=== PATIENT | female | born 1985 | race Caucasian/White ===

== ENCOUNTER 2022-03-21 11:51 | Inpatient (IN) ==
[2022-03-21] MEDS ORDERED: LIDOCAINE 1% LOCAL 20 ML VIAL INFIL PRN (12:24)
[2022-03-21] MEDS ORDERED: LACTATED RINGER'S 1,000 ML IV PRN (12:24)
[2022-03-21] MEDS ORDERED: OXYTOCIN 30 UNITS/500 ML BAG IV PRN ×2 (12:24→14:57)
--- NOTE | 2022-03-21 12:28 | History & Physical Report ---
Date of Service March 21, 2022 Assessment & Plan (1) 38 weeks gestation of : (2) heart rate decelerations affecting management of mother: Plan Patient has now had two of these decels today. Given she is term, would recommend proceeding with induction of labor. No specific contraindication to induction at this point. Will get ultrasound to check fluid. fetus is now category one. Will check cervix when is here and make a plan. History of Present Illness Chief Complaint: decel in the office Primary Care Provider: Miley Long DO Patient is a 36yowf with iup at 38 3/7 weeks who presents to labor and delivery from the office. Was seen there and had decreased FM. Was put on the monitor and had a decel to the 70s that was spontaneous and spontaneously resolved. Patient notes no contractions no lof/vb. has been uncomplicated. While on the monitor here, fetus had another spontaneous decel to the 70s that resolved with position change. OB Labs: Blood Type A Positive 09/10/21 Antibody Screen NEGATIVE 09/10/21 A Hemoglobin 11.8 g/dl (12.0-16.0) L 01/06/22 Hematocrit 35.3 % (34.1-44.9) 01/06/22 Mean Corpuscular Volume 91.3 fL (80-100) 09/10/21 Platelet Count 280 K/uL (130-400) 09/10/21 Rubella IgG Antibody Immune (Immune) 09/10/21 Rapid Plasma Reagin Nonreactive (Nonreactive) 09/10/21 Hepatitis B Surface Antigen. NON-REACTIVE (NON-REACTIVE) 09/10/21 Hepatitis C Antibody (EIA) NON-REACTIVE (NON-REACTIVE) 09/10/21 HIV (1&2) Ag and Ab Confirmation NON-REACTIVE (NON-REACTIVE) 09/10/21 Glucose 1 Hour 50 gm Load 124 mg/dl (70-130) 01/06/22 Maternal Serum Alpha Fetoprotein 75.7 ng/mL 10/22/21 OB Optional Labs: Chlamydia trachomatis RNA NOT DETECTED (NOT DETECTED) 08/13/21 Neisseria gonorrhoeae RNA NOT DETECTED (NOT DETECTED) 08/13/21 Alpha Fetoprotein Triple Screen SEE NOTE 10/22/21 Labs Reviewed: cfdna-low risk--mln Declines cf/sma--mln afp neg-akh Independent Interpretation Lab Interpretation: cfdna-low risk--mln Allergies Allergy/AdvReac Type Severity Reaction Status Date / Time No Known Allergies Allergy Verified 03/21/22 11:00 Home Medications Medication Instructions Recorded Confirmed Type prenat.vits,josselin,gqg-phdu-pbtnz 1 tab PO DAILY 08/10/21 03/21/22 History Patient History Medical History Anxiety GERD (gastroesophageal reflux disease) Surgical History Hx of appendectomy [place] teeth removed Family History Father Heart disease Grandmother (Maternal) Arthritis Grandfather (Maternal) Hypertension Prostate cancer Grandfather (Paternal) Myocardial infarction Social History Smoking Status: Former smoker Age Quit Using Tobacco: 29; Hx Alcohol Use: No Hx Substance Use: No Preferred Language: Senegalese marital status: marital status details: Wan [phone] Current Living Situation: Spouse Current Living Situation Comment: lives with spouse, 1 dog, 1 cat, pt changing litter, using gloves. 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 Coding Level of Care Code None Diagnoses 38 weeks gestation of Z3A.38 heart rate decelerations affecting management of mother O36.8390
[2022-03-21 12:46] LABS: Hematocrit (blood only) 32.9 % (34.1-44.9); Hemoglobin 11.4 g/dl (12.0-16.0); Mean Corpuscular Hemoglobin 31.2 pg (25.0-34.0); Mean Corpuscular Hgb Conc 34.7 g/dL (32.0-36.0); Mean Corpuscular Volume 90.1 fL (80.0-100.0); Mean Platelet Volume 9.9 fL (9.4-12.3); Platelet Count 233 K/uL (130-400); RDW Coefficient of Variation 13.3 % (11.5-14.5); RDW Standard Deviation 43.8 fL (36.4-46.3); Red Blood Count 3.65 M/uL (3.93-5.22); White Blood Count 10.71 K/ul (4.8-10.8)
--- NOTE | 2022-03-21 14:21 | Labor Progress Brief Note ---
Date of Service March 21, 2022 Subjective Explained to the patient options for induction. Will go with brown/pit. consent obtained for brown. Assessment & Plan (1) 38 weeks gestation of : (2) heart rate decelerations affecting management of mother: Plan brown placed, will start pitocin, discussed all options at this point with both of them--primary c/s without labor, induction with pit alone (cx unfavorable), pit with brown to help cervix. They are ok to proceed with induction. Discussed that no contraindication for induction at this point. However, if fetus does not tolerate and remote from labor, will need c/s. Did discuss the remote possiblity of stat c/s for terminal kamlesh. They express understanding. As of now, fetus category one and very reassuring. US for fluid soon. Admission and Anticipated Discharge Date Admission Date: March 21, 2022 Physical Exam Physical Exam: cx--cl/l/h toco--kareem efm--130s with mod variability, accels to 150s, no decels speculum placed, cx visualized, brown threaded through the os, filled with 30cc saline, tolerated well. Results & Data ([facility]) Vital Signs (Past 12 Hours) Vital Signs Temp Pulse Resp BP 03/21/22 13:03 74 144/87 H 03/21/22 12:58 37.0 C 20 Coding Level of Care Code None Diagnoses 38 weeks gestation of Z3A.38 heart rate decelerations affecting management of mother O36.8390
--- NOTE | 2022-03-21 15:35 | Ultrasound Report ---
US OB limited CLINICAL HISTORY: solange/dvp COMPARISON STUDY: OB ultrasound November 12, 2021. TECHNIQUE: Transabdominal sonography of the pelvis was performed to assess amniotic fluid index. FINDINGS: Single viable intrauterine gestation is noted with cephalic presentation. heart rate is normal at 127 bpm. Amniotic fluid index is 6 cm. The deepest vertical pocket is 2.8 cm. Please not e that a dedicated anatomical survey was not performed. IMPRESSION: 1. Single viable intrauterine gestation. Normal heart rate. Cephalic presentation. 2. Amniotic fluid index of 6 cm. Deepest vertical pocket of 2.8 cm. ACT 112: Negative or not required by law. Electronically signed by: Lucio Burch M.D. 03/21/2022 3:34 PM
--- NOTE | 2022-03-21 16:26 | Labor Progress Brief Note ---
Date of Service March 21, 2022 Subjective Presented to bedside due to recurrent variable decelerations. Patient had 3 Deceleration is a within 10 minutes lasting greater than 2 minutes each down to as low as the 60s. I discussed the recurrence of the variable decels remote from delivery. Discussed that due to the recurrence of the decelerations and the degree of the decelerations we could not continue with Pitocin and the patient was not laboring spontaneously and therefore recommended we proceed with a primary Caesarean section due to intolerance of labor and nonreassuring evaluation. Discussed primary Caesarean section including risks and benefits. consents reviewed and signed. Assessment & Plan (1) 38 weeks gestation of : (2) heart rate decelerations affecting management of mother: Admission and Anticipated Discharge Date Admission Date: March 21, 2022 Results & Data ([facility]) Vital Signs (Past 12 Hours) Vital Signs Temp Pulse Resp BP 03/21/22 15:15 81 140/89 03/21/22 13:03 74 144/87 H 03/21/22 12:58 37.0 C 20 Coding Level of Care Code None Diagnoses 38 weeks gestation of Z3A.38 heart rate decelerations affecting management of mother O36.8390
[2022-03-21] MEDS ORDERED: AZITHROMYCIN 500 MG in DEXTROSE 5% 250 ML IV STA (16:31)
[2022-03-21] MEDS ORDERED: fentaNYL citrate 100 MCG/2 ML VIAL ONE (16:34)
[2022-03-21] MEDS ORDERED: MoRPHine SULFATE PF 1 MG/ML 10 ML AMP/VIAL ONE (16:34)
[2022-03-21] MEDS ORDERED: OXYTOCIN 10 UNITS/ML 10ML VIAL ONE (16:34)
[2022-03-21] MEDS ORDERED: diphenhydrAMINE 50 MG/ML VIAL IV PRN (16:41)
[2022-03-21] MEDS ORDERED: MoRPHine SULFATE 2 MG/ML CARP IV PRN (16:41)
[2022-03-21] MEDS ORDERED: MoRPHine SULFATE PF 1 MG/ML 10 ML AMP/VIAL INT SPINAL ONE (16:41)
[2022-03-21] MEDS ORDERED: NALBUPHINE HCL INJ 10 MG/ML AMP IV PRN (16:41)
[2022-03-21] MEDS ORDERED: NALOXONE HCL 0.4 MG/1 ML VIAL/CARP IV PRN (16:41)
[2022-03-21] MEDS ORDERED: NALOXONE HCL 1 MG in SODIUM CHLORIDE 0.9% 1000ML 1,000 ML IV PRN (16:41)
[2022-03-21] MEDS ORDERED: KETOROLAC 30 MG/ML VIAL IV PRN (16:41)
[2022-03-21] MEDS ORDERED: LACTATED RINGER'S 500 ML IV PRN (16:41)
[2022-03-21] MEDS ORDERED: ONDANSETRON INJ 2 MG/ML 2 ML VIAL IV PRN (16:41)
[2022-03-21] MEDS ORDERED: NALOXONE HCL 0.08 MG in SYRINGE 1.8 ML IV PRN (16:41)
[2022-03-21] MEDS ORDERED: ePHEDrine sulfate 50 MG/ML AMP IV PRN (16:41)
--- NOTE | 2022-03-21 16:41 | Anesthesiology Consultation ---
Date of Service March 21, 2022 Assessment & Plan ASA ASA2E Proposed Anesthesia Anesthesia Type: Spinal Risk / Benefits Reviewed With: PT / POA / Parent / Guardian, Accepts Plan and Informed Consent Obtained Additional Comments: NRFHT, intolerance to labor. ok for spinal per OB History Surgery Operation Date: 03/21/22 17:00 Proposed Procedures p Section in LD - Reed Babb MD Height/Weight Height: 5 ft 2 in Weight: 74.843 kg Allergies Allergy/AdvReac Type Severity Reaction Status Date / Time No Known Allergies Allergy Verified 03/21/22 11:00 Medications Home Medications Medication Instructions Recorded Confirmed Last Taken prenat.vits,josselin,ebl-emmz-uokxr 1 tab PO DAILY 08/10/21 03/21/22 03/20/22 21:00 Active Medications Generic Name Dose Route Start Last Admin Trade Name Freq PRN Reason Stop Dose Admin Citric Acid/Sodium Citrate 30 ml 03/21/22 17:00 03/21/22 16:40 Citric Acid/Sodium Citrate 15 Ml Udc PO 03/21/22 17:01 30 ml PREOP JORDAN Administration Lactated Ringer's 1,000 mls @ 125 mls/hr 03/21/22 12:24 03/21/22 12:57 Lr IV 03/23/22 12:23 125 mls/hr .Q8H PRN Infusion L&D Protocol Protocol Oxytocin 30 units in 500 mls @ 1 mls/hr 03/21/22 14:57 03/21/22 16:34 Pitocin IV 03/23/22 14:56 0 units/hr .Q24H PRN 0 mls/hr Labor Induction/Augmentation Titration Protocol 0.06 UNITS/HR NPO Date Last Intake of Fluids: 03/21/22 Time Last Intake of Fluids: 14:00 Date Last Intake of Solids: 03/21/22 Time Last Intake of Solids: 07:30 Past Medical History Medical History Anxiety GERD (gastroesophageal reflux disease) Exercise / Class Metabolic Activity II 4-5 Yardwork/Stairs/Walk up hill Past Family History Family History Father Heart disease Grandmother (Maternal) Arthritis Grandfather (Maternal) Hypertension Prostate cancer Grandfather (Paternal) Myocardial infarction Past Surgical History Surgical History Hx of appendectomy [place] teeth removed Past Anesthesia History No Hx of Anesthesia Complications and No Family Hx of Anesthesia Complications History of PONV No Hx of PONV and No Hx of Motion Sickness Social History Smoking Status: Former smoker Hx Alcohol Use: No Alcohol type: beer, wine and hard liquor Hx Substance Use: Yes substance use type: does not use Review of Systems denies fever/cough/ colds/ chest pain/ SOB/ PAUL denies PAUL Physical Exam Vital Signs Last Vital Signs Temp 37.0 C 03/21/22 12:58 Pulse 81 03/21/22 15:15 Resp 20 03/21/22 12:58 BP 140/89 03/21/22 15:15 ENMT Mouth: no TMJ abnormality and no dentition abnormality Thyromental Distance: > or= 3.5 Finger Breadths Mallampati Class: II Neck neck extension not limited Respiratory normal respiratory effort; no respiratory distress Auscultation: lungs clear to auscultation bilaterally Cardiovascular Rate/Rhythm: regular rate and regular rhythm Neurologic moves all extremities Psychiatric Orientation: alert and oriented x 3 Testing Laboratory Results 03/21/22 12:33 Antibody Screen NEGATIVE 03/21/22 12:33
[2022-03-21] MEDS ORDERED: DC INTRASPINAL MORPHINE SCH (16:45)
[2022-03-21] MEDS ORDERED: SODIUM CHLORIDE 0.9% 1000ML 1,000 ML IV SCH (16:45)
[2022-03-21] MEDS ORDERED: NO NARCOTICS OR SEDATIVES SCH (16:45)
[2022-03-21] MEDS ORDERED: PHENYLEPHRINE 100MCG/ML 5ML SYR ONE (16:47)
[2022-03-21] MEDS ORDERED: ceFAZolin 2000MG 2,000 MG/15 ML SYR IV SCH (17:00)
[2022-03-21] MEDS ORDERED: CITRIC ACID/SODIUM CITRATE 15 ML UDC PO SCH (17:00)
[2022-03-21] MEDS ORDERED: KETOROLAC 30 MG/ML VIAL ONE (17:36)
[2022-03-21] MEDS ORDERED: ONDANSETRON INJ 2 MG/ML 2 ML VIAL ONE (17:36)
--- NOTE | 2022-03-21 17:58 | Post Operative Brief Note ---
PG Immediate Post Op with CF Date of Surgery March 21, 2022 Pre & Post Diagnosis Operation Date: 03/21/22 17:00 Pre-Op Diagnosis: intolerance to labor Post-Op Diagnosis: intolerance to labor I identified the patient and participated in the time-out.: Yes Procedure Operation Date: 03/21/22 17:00 Actual Procedures p Section in LD of live female child in LD OR at 1720 - Reed Babb MD Surgeon Reed Babb MD Station Worker None Estimated Blood Loss 600 Findings Consistent with Post-Op Diagnosis Specimens Specimen Description: 1. Cord gases, venous and arterial 2. Placenta: EXAM 3. Cord blood Drains Umana Catheter OB Procedure charges OB Charges 26327
[2022-03-21] MEDS ORDERED: HYDROCORTISONE ACETATE 25 MG SUPP PR PRN (18:01)
[2022-03-21] MEDS ORDERED: DIPHTHERIA/TETANUS/PERTUSSIS 0.5 ML SYR/VIAL IM ONE (18:01)
[2022-03-21] MEDS ORDERED: SENNA 8.6 MG TAB PO PRN (18:01)
[2022-03-21] MEDS ORDERED: BENZOCAINE 20% AER SPR 82.5 GM CAN EXT PRN (18:01)
[2022-03-21] MEDS ORDERED: MAGNESIUM HYDROXIDE SUSP 30 ML UDC PO PRN (18:01)
[2022-03-21 18:07] LABS: Base Excess Cord Arterial Bld -4.7 mEq/L (-9-1.8); CO2 Cord Arterial Blood 67 mmHg (39.1-73.5); HCO3 Cord Arterial Blood 25 mmol/L (19.7-28.5); Oxygen Sat Cord Arterial Blood < 60.0 % (<60); pH Cord Arterial Blood 7.18 (7.1-7.38)
[2022-03-21 18:12] LABS: Base Excess Cord Venous Blood -4.9 mEq/L (-7.7-1.9); Cord Venous Blood HCO3 23 mmol/L (18.4-26.8); Cord Venous Blood PCO2 54 mmHg (30.4-57.2); Cord Venous Blood PO2 15 mmHg (14.1-43.3); Cord Venous Blood pH 7.24 (7.20-7.44); O2 Saturation Cord Venous Bld < 60.0 % (<68); PO2 Cord Arterial Blood < 60 mmHg (4.1-31.7)
[2022-03-21] MEDS ORDERED: LACTATED RINGER'S 1,000 ML IV SCH (18:15)
--- NOTE | 2022-03-21 18:56 | Anesthesiology Progress Note ---
Date of Service March 21, 2022 Anesthesia Post Procedure Vital Signs Vital Signs: Temp Pulse Resp BP Pulse Ox 03/21/22 18:45 20 03/21/22 18:35 18 03/21/22 18:25 18 03/21/22 18:15 18 03/21/22 18:05 36.8 C 16 03/21/22 18:54 74 135/60 03/21/22 18:52 81 96 03/21/22 18:47 84 96 03/21/22 18:48 78 140/61 03/21/22 18:42 87 96 03/21/22 18:37 87 115/69 96 03/21/22 18:32 90 97 03/21/22 18:27 92 H 119/73 98 03/21/22 18:22 76 97 03/21/22 18:17 76 97 03/21/22 18:18 75 118/63 03/21/22 18:12 80 97 03/21/22 18:07 84 131/88 100 03/21/22 15:15 81 140/89 03/21/22 13:03 74 144/87 H 03/21/22 12:58 37.0 C 20 Transfer of Care Handoff Completed per policy Notes Mental Status: alert / awake / arousable and participated in evaluation Patient Amnestic to Procedure: Yes Nausea / Vomiting: adequately controlled Pain: adequately controlled Airway Patency, RR, SpO2: stable & adequate BP & HR: stable & adequate Hydration State: stable & adequate Anesthetic Complications: no major complications apparent and Pt Satisfied with anesthetic care
[2022-03-21] MEDS: OXYTOCIN 20 UNITS in LACTATED RINGER'S 1,000 ML IV SCH (19:10)
--- NOTE | 2022-03-21 21:15 | Operative Report (OR) ---
DATE OF SERVICE: 03/21/2022 PROCEDURE: Primary low transverse section. SURGEON: Reed Babb MD PREOPERATIVE DIAGNOSES: 1. Single intrauterine at 38 weeks 3 days gestational age. 2. Nonreassuring testing. 3. intolerance of labor. POSTOPERATIVE DIAGNOSES: 1. Single intrauterine at 38 weeks 3 days gestational age. 2. Nonreassuring testing. 3. intolerance of labor. 4. Status post procedure. 5. Suspected IUGR. 6. Thick meconium. ESTIMATED BLOOD LOSS: 600 mL DRAINS: Umana catheter. FLUIDS: Continuous lactated Ringer. URINE OUTPUT: Per Umana catheter. COMPLICATIONS: None. FINDINGS: Viable with weight pending and Apgars of 8 and 9 at one and five minutes respectiv zhang. INDICATIONS: The patient is a 36-year-old G1, P0, admitted at 38 weeks and 3 days gestational age fo r recurrent heart rate decelerations. The patient was noted to have deceleration in clinic and was also noted to have recurrent decelerations on labor and delivery. We attempted an induction of labor, but the patient had recurrent decelerations lasting 2 minutes down to the 60s. After the Jalil johanna was the patient minimally umair. At that time, I discussed with the patient the recur rence of the deep variable decels and recommendation for a primary section for intoler ance of labor and inability to augment with nonreassuring testing. The patient was agreeable t o proceed with a primary section. Consents were reviewed and signed. DESCRIPTION OF PROCEDURE: The patient was taken to the operating room after consents were assured. Upon presentation, she was properly identified. Spinal anesthesia was obtained without difficulty. The patient was prepped and draped in the normal sterile fashion. Preprocedural timeout was performe d, after which a Pfannenstiel incision was made with a knife. This was carried down to underlying fa scia with the Bovie and blunt dissection. The fascia was nicked at the midline and extended laterall y in each direction with pickups and Alvares scissors. The superior aspect of the fascia was grasped wi th Rickey x2, elevated off the underlying rectus muscles. This was repeated on the inferior fascia. The midline was then entered bluntly, placed on stretch to provide adequate room for delivery. The bladder blade was inserted. Bladder flap was created. A low transverse uterine incision was then m sammie with a knife. The uterine cavity and amniotic cavity were both entered bluntly and placed on str etch to provide adequate room for delivery. The head of the was delivered and was quickly fo llowed by the shoulders and body. was noted to have good tone upon delivery. The cord was d ouble clamped and cut. was taken to the waiting nursery staff for evaluation. Cord segment and cord blood was obtained. Attention was then turned to delivery of the placenta, which was delive red intact, 3-vessel cord on gentle cord traction. The uterus was exteriorized. Several passes were made to remove any remaining membranes with a dry lap. The uterus was wrapped in a wet lap and hyst erotomy was reapproximated with the first layer using 0 Vicryl continuous running locked stitch. A s econd imbricating layer was performed using 0 Vicryl in imbricating stitch. The posterior cul-de-sac was cleaned of clots and debris. Uterus was returned to maternal abdomen and the hysterotomy was in spected for and noted to be hemostatic. Right and left pericolic gutters were cleaned of clots and d ebris. The space of Retzius, muscle and fascial layers were all inspected and noted to be hemostatic . The fascia was reapproximated with 0 Vicryl in continuous running stitch. The subcutaneous layer was reapproximated with 2-0 plain in continuous running stitch at the Yamilex's layer. The skin was r eapproximated with 3-0 Vicryl on a Fernando needle. Needle, sponge, and instrument counts were correct at the completion of the case. Both mother and stable in the immediate post-delivery period. Job ID: [id number]
[2022-03-21] MEDS: SIMETHICONE 80 MG CHEW PO SCH (22:17)
[2022-03-21] MEDS: DOCUSATE SODIUM 100 MG CAP PO SCH (22:17)
[2022-03-22] MEDS: OXYTOCIN 20 UNITS in LACTATED RINGER'S 1,000 ML IV SCH (03:44)
[2022-03-22 06:36] LABS: Hematocrit (blood only) 29.4 % (34.1-44.9); Hemoglobin 10.3 g/dl (12.0-16.0)
--- NOTE | 2022-03-22 07:12 | Obstetrical Progress Note ---
Date of Service March 22, 2022 Assessment & Plan (1) Supervision of normal intrauterine in primigravida: (2) heart rate decelerations affecting management of mother: Plan s/p POD#1: -Vital signs reviewed, Tmax 37 -A+, GBS negative, Rubella immune -Hemoglobin 11.4 (03/21), 10.3 (03/22) -Progress diet as tolerated, starting with clear liquids this morning -Treat pain as needed -Encourage ambulation Admission and Anticipated Discharge Date Admission Date: March 21, 2022 Supervising Physician Co-Signing Physician Notes Patient seen and evaluated with resident and agree with the above findings and plan. Patient doing well. Continue with routine OB care. Kayli Ang is a 36 y/o female who is POD #1 following delivery at 38 3/7 weeks. Her was uncomplicated, however she presented to the OB office on 03/21 with decreased movement and NST found decels. She was admitted for induction, however baby had nonreassuring heart tones and a was performed. She reports feeling ok this morning, does note abdominal cramping and increased pain, has mild headache as well. States she just received pain medicine prior to exam. Umana catheter in place. Has not eaten any food since procedure, denies nausea or vomiting. States that she has not ambulated yet, patient states that nursing plans to help her ambulate later this morning. Endorses passing gas. Has some persistent lochia with some improvement this morning. Currently breast feeding. Review of Systems Constitutional: no fever, no chills and no sweats Respiratory: no cough, no dyspnea and no wheezing Cardiovascular: no chest pain, no palpitations and no calf pain Genitourinary: no dysuria Neurologic: + headache(s) Physical Exam Constitutional: WD/WN, vitals as above no acute distress Respiratory: no respiratory distress Auscultation: lungs clear to auscultation bilaterally; no rales, no rhonchi and no wheezes Cardiovascular: RRR, no murmur, no edema Extremities: no calf tenderness and no edema Negative Andrew's sign bilaterally. Gastrointestinal (Abdomen): Inspection/Auscultation: normal bowel sounds Genitourinary: Uterine fundus firm, palpable below the umbilicus. Surgical incision site is clean and healing appropriately. Results & Data ([facility]) Vital Signs (Past 12 Hours) Vital Signs Temp Pulse Pulse Resp BP BP Pulse Ox 03/22/22 05:00 18 96 03/22/22 06:05 18 94 03/22/22 03:45 36.8 C 86 18 142/82 H 97 03/22/22 03:58 18 97 03/22/22 03:00 16 97 03/22/22 02:00 18 97 03/22/22 00:30 36.9 C 80 18 126/79 97 03/22/22 01:00 16 97 03/21/22 23:51 20 97 03/21/22 21:15 36.7 C 75 18 136/79 98 03/21/22 22:00 18 97 03/21/22 23:00 16 96 03/21/22 21:15 18 98 03/21/22 20:05 20 03/21/22 19:35 18 03/21/22 20:15 64 128/78 03/21/22 20:12 70 99 03/21/22 20:07 72 97 03/21/22 20:05 64 122/72 03/21/22 20:02 68 98 03/21/22 19:57 67 98 03/21/22 19:55 67 116/75 03/21/22 19:52 76 98 03/21/22 19:47 65 98 03/21/22 19:44 76 126/71 03/21/22 19:42 69 98 03/21/22 19:37 64 98 03/21/22 19:35 65 125/64 03/21/22 19:32 73 98 03/21/22 19:27 66 97 03/21/22 19:22 84 98 03/21/22 19:17 80 97 03/21/22 19:15 72 107/57 L 03/21/22 19:12 76 96 O2 Del Method 03/22/22 05:00 03/22/22 06:05 03/22/22 03:45 Room Air 03/22/22 03:58 03/22/22 03:00 03/22/22 02:00 03/22/22 00:30 Room Air 03/22/22 01:00 03/21/22 23:51 03/21/22 21:15 Room Air 03/21/22 22:00 03/21/22 23:00 03/21/22 21:15 03/21/22 20:05 03/21/22 19:35 03/21/22 20:15 03/21/22 20:12 03/21/22 20:07 03/21/22 20:05 03/21/22 20:02 03/21/22 19:57 03/21/22 19:55 03/21/22 19:52 03/21/22 19:47 03/21/22 19:44 03/21/22 19:42 03/21/22 19:37 03/21/22 19:35 03/21/22 19:32 03/21/22 19:27 03/21/22 19:22 03/21/22 19:17 03/21/22 19:15 03/21/22 19:12 Resident Activity Tracking Resident Involvement: Resident Care Provided Care Provided: OB Delivery
[2022-03-22] MEDS: FERROUS SULFATE 325 MG TAB PO SCH ×2 (08:50→08:57)
[2022-03-22] MEDS: DOCUSATE SODIUM 100 MG CAP PO SCH ×2 (08:52→18:53)
[2022-03-22] MEDS: PRENATAL VITAMIN 1 TAB PO SCH (08:53)
[2022-03-22] MEDS: SIMETHICONE 80 MG CHEW PO SCH ×4 (09:43→22:00)
[2022-03-22] MEDS ORDERED: PROMETHAZINE HCL 25 MG in SODIUM CHLORIDE 0.9% 50 ML IV PRN (10:42)
[2022-03-22] MEDS ORDERED: diphenhydrAMINE 50 MG/ML VIAL IV PRN (10:42)
[2022-03-22] MEDS ORDERED: diphenhydrAMINE Capsule 25 MG CAP PO PRN (10:42)
[2022-03-22] MEDS ORDERED: ONDANSETRON INJ 2 MG/ML 2 ML VIAL IV PRN (10:42)
[2022-03-22] MEDS ORDERED: KETOROLAC 30 MG/ML VIAL IV PRN (10:42)
[2022-03-22] MEDS: oxyCODONE/ACETAMINOPHEN 5mg/325mg TAB PO PRN ×3 (11:05→18:56)
[2022-03-22] MEDS: IBUPROFEN 600 MG TAB PO PRN ×2 (14:29→18:56)
[2022-03-22] MEDS ORDERED: bisacodyL 5 MG TABEC PO SCH (20:00)
[2022-03-23] MEDS: oxyCODONE/ACETAMINOPHEN 5mg/325mg TAB PO PRN ×5 (01:25→22:37)
[2022-03-23] MEDS: IBUPROFEN 600 MG TAB PO PRN ×4 (01:27→22:38)
--- NOTE | 2022-03-23 06:08 | Obstetrical Progress Note ---
Date of Service March 23, 2022 Assessment & Plan (1) Supervision of normal intrauterine in primigravida: (2) 38 weeks gestation of : (3) heart rate decelerations affecting management of mother: Plan s/p POD#2: Vitals reviewed and WNL, Tmax at 37 A+, GBS negative, rubella immune Hemoglobin 11.4 (03/21), 10. 3 (03/22) Encourage ambulation Continue regular diet, treat pain as needed Discussed discharge plan, patient considering going home today- will have d/c ready Admission and Anticipated Discharge Date Admission Date: March 21, 2022 Supervising Physician Co-Signing Physician Notes Resident Physician Supervision Note: I interviewed and examined the patient. Discussed with Dr. Yeager and agree with findings and plan as documented in the note. Any exceptions or clarifications are listed here: POD2 s/p pLTCS for NRFHT. VSS, exam benign and wnl, incision c/d/i. Pt considering d/c home today, ok to do so if desires Documented By: Shelly Desai MD Kayli Ang is a 36 y/o female who is POD #2 following delivery at 38 3/7 weeks. Her was uncomplicated, however she presented to the OB office on 03/21 with decreased movement and NST found decels. She was admitted for cresencio ction, however baby had nonreassuring heart tones and a was performed. She reports feeling well overall this morning. States pain well managed on analgesics. Voiding without issue, brown catheter removed yesterday. Tolerating meals overnight and able to ambulate some. Endorses passing gas. Has persistent lochia, notes it was a bit heavier yesterday evening but no significant changes this morning. Currently breast feeding. Review of Systems Constitutional: no fever, no chills and no sweats Respiratory: no cough, no dyspnea and no wheezing Cardiovascular: no chest pain, no palpitations and no calf pain Genitourinary: no dysuria Neurologic: no headache(s) Physical Exam Constitutional: WD/WN, vitals as above no acute distress Respiratory: no respiratory distress Auscultation: lungs clear to auscultation bilaterally; no rales, no rhonchi and no wheezes Cardiovascular: RRR, no murmur, no edema Extremities: no calf tenderness and no edema Negative Andrew's sign bilaterally. Gastrointestinal (Abdomen): Inspection/Auscultation: normal bowel sounds Genitourinary: Uterine fundus firm, palpable below the umbilicus. Surgical incision site is clean and healing appropriately. Results & Data ([facility]) Vital Signs (Past 12 Hours) Vital Signs Temp Pulse Resp BP Pulse Ox O2 Del Method 03/23/22 00:00 36.6 C 93 H 18 119/81 98 Room Air Resident Activity Tracking Resident Involvement: Resident Care Provided Care Provided: OB Delivery
[2022-03-23] MEDS: DOCUSATE SODIUM 100 MG CAP PO SCH ×2 (07:55→20:05)
[2022-03-23] MEDS: SIMETHICONE 80 MG CHEW PO SCH ×4 (07:55→20:05)
[2022-03-23] MEDS: PRENATAL VITAMIN 1 TAB PO SCH ×2 (07:56→08:04)
[2022-03-23] MEDS: FERROUS SULFATE 325 MG TAB PO SCH ×2 (07:56→08:04)
[2022-03-23] MEDS ORDERED: bisacodyL 10 MG SUPP PR PRN (18:01)
[2022-03-24] MEDS: IBUPROFEN 600 MG TAB PO PRN ×2 (05:09→09:28)
[2022-03-24] MEDS: oxyCODONE/ACETAMINOPHEN 5mg/325mg TAB PO PRN ×2 (05:09→09:29)
--- NOTE | 2022-03-24 06:16 | Obstetrical Progress Note ---
Date of Service March 24, 2022 Assessment & Plan (1) 38 weeks gestation of : (2) Supervision of normal intrauterine in primigravida: Plan s/p POD#3: Vitals reviewed and WNL, Tmax at 37 A+, GBS negative, rubella immune Hemoglobin 11.4 (03/21), 10.3 (03/22) Encourage ambulation Continue regular diet, treat pain as needed Discussed discharge, planning to d/c today Admission and Anticipated Discharge Date Admission Date: March 21, 2022 Supervising Physician Co-Signing Physician Notes Resident Physician Supervision Note: I was present with Dr. Yeager during the history and exam. I discussed the case with the resident and agree with the findings and plan as documented in the note. Any exceptions or clarifications are listed here: POD#3 doing well, desires DC home. Incision CDI. Followup 6w PP. Reviewed instructions. Rx Percocet was sent to pharmacy on file yesterday by Dr Desai. Documented By: Mary Singh, DO [place] Ashia is a 36 y/o female who is POD #3 following delivery at 38 3/7 weeks. Her was uncomplicated, however she presented to the OB office on 03/21 with decreased movement and NST found decels. She was admitted for induction, however baby had nonreassuring heart tones and a was performed. She reports feeling well overall this morning. States pain well managed on analgesics, doing better today than yesterday. Voiding without issue. Tolerating meals overnight and able to ambulate some. Endorses passing gas no BM yet. Has persistent lochia with some improvement this morning. Currently breast feeding. Review of Systems Constitutional: no fever, no chills and no sweats Respiratory: no cough, no dyspnea and no wheezing Cardiovascular: no chest pain, no palpitations and no calf pain Genitourinary: no dysuria Neurologic: no headache(s) Physical Exam Constitutional: WD/WN, vitals as above no acute distress Respiratory: no respiratory distress Auscultation: lungs clear to auscultation bilaterally; no rales, no rhonchi and no wheezes Cardiovascular: RRR, no murmur, no edema Extremities: no calf tenderness and no edema Negative Andrew's sign bilaterally. Gastrointestinal (Abdomen): Inspection/Auscultation: normal bowel sounds Genitourinary: Uterine fundus firm, palpable below the umbilicus. Incision site is clean and healing appropriately. Results & Data ([facility]) Vital Signs (Past 12 Hours) Vital Signs Temp Pulse Resp BP Pulse Ox O2 Del Method 03/23/22 23:25 36.5 C 86 16 133/87 98 Room Air Resident Activity Tracking Resident Involvement: Resident Care Provided Care Provided: OB Delivery
[2022-03-24] MEDS: PRENATAL VITAMIN 1 TAB PO SCH ×2 (08:29→08:31)
[2022-03-24] MEDS: DOCUSATE SODIUM 100 MG CAP PO SCH (08:29)
[2022-03-24] MEDS: FERROUS SULFATE 325 MG TAB PO SCH ×2 (08:29→08:32)
[2022-03-24] MEDS: SIMETHICONE 80 MG CHEW PO SCH (08:29)
--- NOTE | 2022-04-06 22:52 | Discharge Summary (DS) ---
DATE OF ADMISSION: 03/21/2022. DATE OF DISCHARGE: 03/24/2022. HOSPITAL COURSE: The patient was admitted for evaluation for nonreassuring testing in clinic. The patient was noted to have recurrent decelerations, which were not compatible with induction of l abor and the patient underwent a primary low transverse section, which was completed without complication. The patient remained in-house for 3 days and recovered well without any co ncerns or issues. The patient was discharged home in stable condition with both written and verbal d ischarge instructions. Job ID: [id number]
== END 2022-03-24 13:10 | disposition home or self-care (01) | DRG 788 ==
LOC: OPB 11:51 → 4S1 11:52 → 4E2 21:01